=== PATIENT | female | born 1965 | race Hispanic/Latino ===

== ENCOUNTER 2020-04-03 07:50 | Day surgery (SDC) | payer MEDICARE, OTHER ==
[~2020-04-03] VITALS: Ht 157.5 cm; Wt 92.1 kg
[~2020-04-03 07:50] MED LIST: ATOR20TA65 PO; DAPA5TAB PO; INSU100C14 SQ; LEVO150 PO; PREG75 PO; QUESL4 PO; SODIUM CHLORIDE 0.9% 1000ML 1,000 ML IV ONE
[2020-04-03 08:16] VITALS: BP 116/62
[2020-04-03] MEDS ORDERED: PROPOFOL 10 MG/ML 20ML VIAL IV ONE (09:04)
[2020-04-03 09:20] VITALS: BP 104/65
[2020-04-03 09:25] VITALS: BP 106/68
[2020-04-03 09:30] VITALS: BP 107/63
[2020-04-03 09:35] VITALS: BP 127/76
[2020-04-03 09:40] VITALS: BP 128/67
== END 2020-04-03 10:00 | disposition home or self-care (01) ==
LOC: DAH 07:50 → ENDO 07:50
PROVIDERS: ATTEND Internal Medicine
DX: R19.7 Diarrhea, unspecified (principal); K64.0 First degree hemorrhoids; R10.10 Upper abdominal pain, unspecified; E03.9 Hypothyroidism, unspecified; E78.5 Hyperlipidemia, unspecified; E11.9 Type 2 diabetes mellitus without complications; M19.90 Unspecified osteoarthritis, unspecified site; K21.9 Gastro-esophageal reflux disease without esophagitis; Z90.49 Acquired absence of other specified parts of digestive tract; Z90.710 Acquired absence of both cervix and uterus; Z79.899 Other long term (current) drug therapy
CPT/HCPCS: 45378; 82948 ×2; A4215; A4221; A4222; A4223; A4606; A4615; A4663; J2704; J7030